=== PATIENT | female | born 1960 | race Caucasian/White ===

== ENCOUNTER → 2016-12-19 | Outpatient (CLI) | payer BC, OTHER ==
[~2016-12-19] VITALS: Ht 157.5 cm; Wt 86.6 kg
[~2016-12-19] MED LIST: CALCTAB29 PO; LIDOCAINE 2% INJ 100 MG/5 ML SDV (FOR ANES.) As Ordered ONE; MULT1TAB10 PO; NS 1,000 ML IV ONE; PROPOFOL 200 MG/20 ML VIAL As Ordered ONE; VITA100037 PO
--- NOTE | 2016-12-19 10:25 | ROOR ---
Patient Name: Gayle Vang Procedure Date: 12/19/2016 10:04 AM Date of : 1960 Age: 56 Room: [facility] Gender: Female Note Status: Finalized Procedure: Colonoscopy Indications: Screening for colorectal malignant neoplasm Providers: Benjie GRIFFIN MD Referring MD: Hilario Garland MD Requesting Provider: Medicines: Monitored Anesthesia Care Complications: No immediate complications. Procedure: Pre-Anesthesia Assessment: - The heart rate, respiratory rate, oxygen saturations, blood pressure, adequacy of pulmonary ventilation, and response to care were monitored throughout the procedure. The Colonoscope was introduced through the anus and advanced to the cecum, identified by appendiceal orifice and ileocecal valve. The colonoscopy was performed without difficulty. The patient tolerated the procedure well. The quality of the bowel preparation was good. Findings: The perianal and digital rectal examinations were normal. Small Internal Hemorrhoids. The entire examined colon appeared normal on direct and retroflexion views. Impression: - Small Internal Hemorrhoids. - The entire examined colon is normal on direct and retroflexion views. - No specimens collected. Recommendation: - Repeat colonoscopy in 10 years for screening purposes. Benjie Griffin MD Benjie GRIFFIN MD 12/19/2016 10:24:48 AM This report has been signed electronically. Number of Addenda: 0 Note Initiated On: 12/19/2016 10:04 AM Estimated Blood Loss: Estimated blood loss: none.
[2016-12-19 10:45] VITALS: BP 112/65
== END | disposition home or self-care (01) ==
LOC: M OPP 08:52
PROVIDERS: ATTEND Internal Medicine Gastroenterology
DX: Z12.11 Encounter for screening for malignant neoplasm of colon (principal); K64.8 Other hemorrhoids; G43.909 Migraine, unspecified, not intractable, without status migrainosus; Z80.3 Family history of malignant neoplasm of breast; Z98.84 Bariatric surgery status; Z88.8 Allergy status to other drugs, medicaments and biological substances; Z91.041 Radiographic dye allergy status; Z91.048 Other nonmedicinal substance allergy status; Z79.899 Other long term (current) drug therapy

== ENCOUNTER 2017-03-01 16:45 | Emergency (ER) | payer BC, OTHER ==
[~2017-03-01] VITALS: Ht 157.5 cm; Wt 90.0 kg
[2017-03-01 16:45] VITALS: BP 142/77
[~2017-03-01 16:45] MED LIST changes: -LIDOCAINE 2% INJ 100 MG/5 ML SDV (FOR ANES.) As Ordered ONE; -NS 1,000 ML IV ONE; -PROPOFOL 200 MG/20 ML VIAL As Ordered ONE; -VITA100037 PO; +VITA100067 PO
[2017-03-01] MEDS ORDERED: ADACEL/BOOSTRIX VACCINE (DIPHTH/PERTUSS/ACELL/TETANUS)0.5ML SYR (90715) IM ONE (17:15)
[2017-03-01] MEDS ORDERED: PERCOCET 5MG/325MG TAB PO ONE (17:30)
[2017-03-01] MEDS ORDERED: PERC5TAB12 PO (18:05)
[2017-03-01] MEDS ORDERED: KEFL500C17 PO (18:05)
--- NOTE | 2017-03-01 18:07 | REP ---
LEFT 1ST TOE: Five views of the left first toe are performed. I see no definite acute fracture. There is no dislocation. There is mild narrowing at the interphalangeal joint. IMPRESSION: No definite acute fracture. Signed by Marshal Toledo MD 03/01/2017 07:15 P
== END 2017-03-01 18:10 | disposition home or self-care (01) ==
LOC: M ED 16:45
DX: S91.202A Unspecified open wound of left great toe with damage to nail, initial encounter (principal); W22.8XXA Striking against or struck by other objects, initial encounter; Y92.099 Unspecified place in other non-institutional residence as the place of occurrence of the external cause; Y93.01 Activity, walking, marching and hiking; Y99.9 Unspecified external cause status

== ENCOUNTER 2017-07-20 09:23 | Emergency (ER) | payer BC, OTHER ==
[~2017-07-20] VITALS: Ht 157.5 cm; Wt 94.1 kg
[~2017-07-20 09:23] MED LIST changes: +KEFL500C17 PO; +PERC5TAB12 PO
[2017-07-20 09:25] VITALS: BP 138/79
[2017-07-20] MEDS ORDERED: GABA-279 (09:39)
[2017-07-20] MEDS ORDERED: SUMA100T2 (09:39)
[2017-07-20] MEDS ORDERED: CALCTAB9 (09:39)
[2017-07-20 10:32] LABS: BASO # 0.1 10^3/uL (0.0-0.2); BASO % 0.7 % (0.0-1.0); EOS # 0.2 10^3/uL (0.0-0.50); EOS % 2.7 % (0.0-3.0); IMMATURE GRANULOCYTE % 0.2 % (0-0); LYMPH # 2.7 10^3/uL (1.5-4.5); LYMPH % 32.1 % (24.0-44.0); MEAN CORPUSCULAR HEMOGLOBIN 28.7 pg (27.0-33.0); MEAN CORPUSCULAR VOLUME 86.8 fl (80.0-96.0); MONO # 0.4 10^3/uL (0.0-0.8); MONO % 5.2 % (0.0-5.0); NEUTROPHILS # 4.9 10^3/uL (1.8-7.7); NEUTROPHILS % 59.1 % (36.0-66.0); PLATELET COUNT, AUTOMATED 350 10^3/uL (150-450); WHITE BLOOD COUNT 8.3 10^3/uL (4.0-10.0)
[2017-07-20] MEDS ORDERED: TETRACAINE 0.5% OPHTH SOLN 4ML OD ONE (10:45)
[2017-07-20] MEDS ORDERED: FLUORESCEIN OPHTH 1 MG STRIP OD ONE (11:00)
== END 2017-07-20 11:21 | disposition home or self-care (01) ==
LOC: M ED 09:23
DX: H01.001 Unspecified blepharitis right upper eyelid (principal); H01.002 Unspecified blepharitis right lower eyelid; G43.909 Migraine, unspecified, not intractable, without status migrainosus; K21.9 Gastro-esophageal reflux disease without esophagitis; G25.81 Restless legs syndrome; D69.6 Thrombocytopenia, unspecified; Z88.0 Allergy status to penicillin; Z88.8 Allergy status to other drugs, medicaments and biological substances; Z91.041 Radiographic dye allergy status; L23.1 Allergic contact dermatitis due to adhesives; Z87.891 Personal history of nicotine dependence

== ENCOUNTER → 2017-09-09 | Outpatient (REF) | payer OTHER ==
[2017-09-09 21:54] LABS: APPEARANCE, URINE CLOUDY (CLEAR); BACTERIA, URINE AUTO 3+ (NEGATIVE); BILIRUBIN, URINE AUTO NEGATIVE (NEGATIVE); BLOOD, URINE BLOOD 1+ (NEGATIVE); CALCIUM OXALATE CRYSTALS SMALL; COLOR, URINE YELLOW (YELLOW); GLUCOSE, URINE (UA) AUTO NEGATIVE (NEGATIVE); KETONE, URINE AUTO NEGATIVE (NEGATIVE); LEUKOCYTE ESTERASE, URINE AUTO 1+ (NEGATIVE); MUCUS, URINE SMALL (NEGATIVE); NITRITE, URINE AUTO POSITIVE (NEGATIVE); PROTEIN, URINE AUTO NEGATIVE (NEGATIVE); RBC, URINE AUTO 2 /HPF (0-3); SPECIFIC GRAVITY URINE AUTO 1.019 (1.002-1.035); SQUAMOUS EPITHELIAL CELL UR AU 4 /HPF (0-6); UROBILINOGEN, URINE AUTO 0.2 mg/dL (0.0-2.0); WBC, URINE AUTO 19 /HPF (0-3)
== END ==
LOC: M LAB REF 08:39
DX: N39.0 Urinary tract infection, site not specified (principal)

== ENCOUNTER 2018-12-07 13:15 | Emergency (ER) | payer BC, OTHER ==
[~2018-12-07] VITALS: Ht 157.5 cm; Wt 101.5 kg
[~2018-12-07 13:15] MED LIST changes: +CALCTAB9; +GABA-1171; +SUMA100T2
[2018-12-07 14:53] VITALS: BP 141/84
[2018-12-07] MEDS ORDERED: PRED10TA2 PO (14:54)
[2018-12-07] MEDS ORDERED: AUGM875T28 PO (14:54)
--- NOTE | 2018-12-08 07:04 | REP ---
CT BRAIN WITHOUT IV CONTRAST: CT brain performed without IV contrast. Ventricles are normal in size and position. There is no midline shift or mass effect. Tol[place]-white differentiation is well maintained. There is no acute intracranial hemorrhage or extra-axial fluid collection. There is moderate opacification of the right frontal sinus and mild to moderate opacification of the left frontal sinus. There is moderate diffuse opacification of the left ethmoid sinuses. There is mild mucosal thickening in the left sphenoid and right sphenoid sinuses. There is mild mucosal thickening in the left maxillary sinus. Mastoid air cells are clear. IMPRESSION: Scattered sinusitis, with scattered mild mucosal thickening which appears chronic, but there may be superimposed acute frontal and left ethmoid sinusitis. Otherwise negative noncontrast CT brain. Electronically Signed by Marshal Toledo MD 12/08/2018 11:27 A
== END 2018-12-07 15:04 | disposition home or self-care (01) ==
LOC: M ED 13:15
DX: T78.40XA Allergy, unspecified, initial encounter (principal); Y92.9 Unspecified place or not applicable; Y93.9 Activity, unspecified; J01.80 Other acute sinusitis; E11.9 Type 2 diabetes mellitus without complications; G43.909 Migraine, unspecified, not intractable, without status migrainosus; Z79.899 Other long term (current) drug therapy; Z91.041 Radiographic dye allergy status; Z91.89 Other specified personal risk factors, not elsewhere classified; Z88.0 Allergy status to penicillin; Z88.1 Allergy status to other antibiotic agents; Z88.8 Allergy status to other drugs, medicaments and biological substances

== ENCOUNTER → 2019-03-12 | Outpatient (CLI) | payer BC, OTHER ==
[~2019-03-12] MED LIST changes: +AUGM875T28 PO; +D3 H10002 PO; +MULTTAB13 PO; +PRED10TA2 PO; +SILV1CRE60 TOP; +ZYRTTAB8 PO
--- NOTE | 2019-03-13 08:40 | ECGEPIP ---
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
== END ==
LOC: M EKG 12:22
PROVIDERS: ATTEND Anesthesiology
DX: Z01.818 Encounter for other preprocedural examination (principal); R00.1 Bradycardia, unspecified; I45.10 Unspecified right bundle-branch block

== ENCOUNTER 2019-03-13 11:08 | Day surgery (SDC) | payer BC, OTHER ==
[~2019-03-13] VITALS: Ht 157.5 cm; Wt 95.3 kg
[~2019-03-13 11:08] MED LIST changes: +EPINEPHrine 1MG/ML INJ 30ML MD-VIAL As Ordered ONE; +LIDOCAINE 1% MDV 20ML VIAL SQ PRN; +LR 1,000 ML IV ONE
[2019-03-13] MEDS ORDERED: LIDOCAINE 2% INJ 100 MG/5 ML SDV (FOR ANES.) As Ordered ONE (12:33)
[2019-03-13] MEDS ORDERED: PROPOFOL 200 MG/20 ML VIAL As Ordered ONE (12:33)
[2019-03-13] MEDS ORDERED: ROCURONIUM BROMIDE 50 MG/5 ML VIAL As Ordered ONE (12:33)
[2019-03-13] MEDS ORDERED: dexameTHASONE 4 MG/ML 1ML VIAL (J1100) As Ordered ONE (12:35)
[2019-03-13] MEDS ORDERED: ONDANSETRON 4MG/2ML VIAL (J2405) As Ordered ONE ×2 (12:35→13:20)
[2019-03-13] MEDS ORDERED: fentaNYL 250 MCG/5 ML INJECTION (J3010) As Ordered ONE (12:36)
[2019-03-13] MEDS ORDERED: REMIFENTANIL 1MG 3ML VIAL As Ordered ONE (12:36)
[2019-03-13] MEDS ORDERED: MIDAZOLAM INJ 2 MG/2 ML VIAL (J2250) As Ordered ONE ×2 (12:36→15:23)
[2019-03-13] MEDS ORDERED: EPINEPHrine 1MG/ML INJ 30ML MD-VIAL As Ordered ONE ×2 (12:45→14:07)
[2019-03-13] MEDS ORDERED: SCOPOLAMINE 1MG TRANSDERMAL PATCH As Ordered ONE (12:46)
[2019-03-13] MEDS ORDERED: ACETAMINOPHEN 1000MG 100ML IV BTL (OFIRMEV) (J0131 PER 10MG) As Ordered ONE (13:11)
[2019-03-13] MEDS ORDERED: SCOPOLAMINE 1MG TRANSDERMAL PATCH TOP ONE (13:15)
[2019-03-13] MEDS ORDERED: GLYCOPYRROLATE INJ 0.2 MG/ML 2 ML VIAL As Ordered ONE (13:27)
[2019-03-13] MEDS ORDERED: SUGAMMADEX SODIUM 500 MG/5 ML VIAL (BRIDION) As Ordered ONE (13:33)
[2019-03-13] MEDS ORDERED: METHYLENE BLUE 0.5% (5MG/ML) 10 ML AMP (PROVAYBLUE)(Q9968 PER 1MG) As Ordered ONE (14:06)
[2019-03-13] MEDS ORDERED: OXYMETAZOLINE NASAL SPRAY (AFRIN) As Ordered ONE (14:06)
[2019-03-13] MEDS ORDERED: LIDOCAINE W/EPINEPHRINE 1% 20ML VIAL As Ordered ONE (14:06)
[2019-03-13] MEDS ORDERED: oxyCODONE 5MG TAB As Ordered ONE (14:57)
[2019-03-13] MEDS ORDERED: fentaNYL 100 MCG/2 ML INJECTION (J3010) As Ordered ONE (14:57)
[2019-03-13] MEDS: fentaNYL 100 MCG/2 ML INJECTION (J3010) IV PRN ×4 (14:59→15:35)
[2019-03-13] MEDS: oxyCODONE 5MG TAB PO PRN ×2 (15:00→16:23)
[2019-03-13] MEDS: MIDAZOLAM INJ 2 MG/2 ML VIAL (J2250) IV PRN ×2 (15:26→15:40)
[2019-03-13] MEDS ORDERED: ONDANSETRON 4MG/2ML VIAL (J2405) IV PRN (15:30)
[2019-03-13] MEDS ORDERED: PERCOCET 5MG/325MG TAB PO PRN (15:30)
[2019-03-13] MEDS ORDERED: LR 1,000 ML IV SCH (15:30)
[2019-03-13] MEDS ORDERED: IBUPROFEN 800 MG TAB PO PRN (15:30)
[2019-03-13] MEDS ORDERED: SUMAtriptan SUCCINATE 25 MG TAB PO ONE (16:00)
[2019-03-13] MEDS ORDERED: MORPHINE 10 MG/ML 1ML VIAL (J2270) As Ordered ONE (16:30)
[2019-03-13] MEDS: MORPHINE 10 MG/ML 1ML VIAL (J2270) IV PRN ×3 (16:33→16:55)
[2019-03-13 18:20] VITALS: BP 148/73
--- NOTE | 2019-03-15 10:00 | RO ---
DATE OF PROCEDURE: 03/13/2019 PREPROCEDURE DIAGNOSES: 1. Chronic sinusitis. 2. Deviated septum. POSTPROCEDURE DIAGNOSES: 1. Chronic sinusitis. 2. Deviated septum. PROCEDURE: Septoplasty, bilateral endoscopic ethmoidectomy, maxillary antrostomy. SURGEON: Dr. Bronson Ellsworth. DIRECTORY OPERATOR: ANESTHESIA: General endotracheal. INDICATION: This is a 58-year-old with a history of chronic nasal obstruction and chronic sinusitis. DESCRIPTION OF PROCEDURE: Satisfactory general endotracheal was administered. Pharyngeal pack placed through the nose. Nose prepared for surgery. I placed some cotton-soaked pledgets with Afrin solution to the nasal cavity bilaterally. 1% Xylocaine with 1:100,000 epinephrine was injected in nasal septum. A [place] incision was made on the left side of the nose. A mucoperichondrial flap and envelope was created on the left side of the nasal septum and carried down to the junction of the bony and cartilaginous septum. This was then with an elevator, and an envelope was then created on the right side of the septum. A Kristal scissors was used to make a cut high in the perpendicular plate in the midportion of the vomer, and a central segment of the bony septum was resected. Next, with the round knife on the [place] elevator, a strip of cartilage was resected from the floor of the nose, mobilizing the quadrilateral cartilage and creating a swinging door. Then, a central segment of cartilaginous septum was resected, preserving a 1 cm dorsal and caudal strut. Double-action rongeur was used to take down deflected portions of the perpendicular plate, as well. Finally, the maxillary crest spur was taken down after elevating mucoperiosteum off both sides of it with a chisel. A segment of the resected cartilage was morselized and placed back into the septal envelope. The incision was closed using an interrupted #5-0 chromic suture. Then, a #4-0 plain suture was placed in a owvv-hod-rivin fashion through the two leaves of mucoperichondrium to appose them. At the conclusion of the septal surgery, endoscopic surgery started with a 0 degree telescope on the left side first. The uncinate process was taken down first with the microdebrider and then the lateral lamella of the pneumatized middle turbinates also resected which gave excellent exposure of the middle meatus. The ethmoid bulla was resected and perforated and then the grand lamella was identified and perforated medial inferior quadrant and resected. Working anteriorly, the lamella bone removed clearing the anterior ethmoid cells up to the nasal frontal recess. The actual maxilla sinus ostia was identified. It was enlarged using a combination of side-biting and up-biting forceps. Adrenaline pledgets were placed in this side of the nose with no significant bleeding in this dissection. On the right side, a similar dissection was performed including partial resection of the kandi bullosa by removing the lateral lamella. Large antrostomy was created as well as complete removal of the anterior ethmoid labyrinth. Once this was completed, adrenaline pledgets were placed in this side of the nose. Five minutes of waiting then these were removed. There was no significant bleeding. Sinu-Foam was placed into each side of the nose. The pharyngeal pack was removed, throat suctioned. Patient was awakened, extubated and sent to the recovery room in satisfactory condition. She will be seen back in the office in 3 days.
== END 2019-03-13 18:50 | disposition home or self-care (01) ==
LOC: M SDC 11:08
PROVIDERS: ATTEND Specialist
DX: J32.9 Chronic sinusitis, unspecified (principal); J34.2 Deviated nasal septum; D64.9 Anemia, unspecified; R51 Headache; Z98.84 Bariatric surgery status; Z91.041 Radiographic dye allergy status; Z79.899 Other long term (current) drug therapy; Z87.891 Personal history of nicotine dependence
CPT/HCPCS: 30520; 31255; 31267; 88300; 88305; J0131; J1100; J2250; J2270; J2405; J3010; Q9968

== ENCOUNTER → 2019-08-28 | Outpatient (CLI) | payer BC, OTHER ==
[~2019-08-28] MED LIST changes: -EPINEPHrine 1MG/ML INJ 30ML MD-VIAL As Ordered ONE; -LIDOCAINE 1% MDV 20ML VIAL SQ PRN; -LR 1,000 ML IV ONE
--- NOTE | 2019-08-28 19:41 | REP ---
Maxillofacial CT study without contrast: History: Chronic pansinusitis. Comparison is made with the head CT images from December 07, 2018. Findings: There is complete opacification of the lateral of the two frontal sinus air cells on the right, unchanged from the comparison CT study. There is moderate mucosal thickening and fairly extensive opacification of the ethmoid air cells bilaterally. This is more prominent than on the prior CT. Mild to moderate mucosal thickening is seen in the sphenoid sinus bilaterally. This is more advanced than previously as well. There is moderate to advanced paranasal sinus mucosal thickening affecting the maxillary sinuses. The patient is status post nasoantral window on the right which is widely patent. On the left, it appears to have been done as well although it is narrowed by mucosal thickening. The ostiomeatal complexes are bilaterally obscured. There appears to have been partial ethmoid bullectomy on the right. Nasal turbinate soft tissues are unremarkable. Bony nasal septum is midline. No nasal polyp is seen. A small torus palatine is noted. Mastoid aeration is normal and symmetric. No skull base lesion is seen. The visualized intracranial and intraorbital soft tissues are unremarkable. Impression: Polysinusitis changes. Postoperative changes in the maxillary sinuses bilaterally. Electronically Signed by Everett Skelton MD 08/28/2019 07:44 P
== END ==
LOC: M RAD 17:52
PROVIDERS: ATTEND Specialist
DX: J32.4 Chronic pansinusitis (principal)

== ENCOUNTER 2019-09-15 11:00 | Day surgery (SDC) | payer BC, OTHER ==
[~2019-09-15] VITALS: Ht 157.5 cm; Wt 90.9 kg
[~2019-09-15 11:00] MED LIST changes: +D 202000 PO; +LIDOCAINE 1% MDV 20ML VIAL SQ PRN; +VITA50005 PO
[2019-09-15] MEDS ORDERED: propofoL 200 MG/20 ML VIAL As Ordered ONE (11:31)
[2019-09-15] MEDS ORDERED: ROCURONIUM BROMIDE 50 MG/5 ML VIAL As Ordered ONE (11:31)
[2019-09-15] MEDS ORDERED: LIDOCAINE 2% INJ 100 MG/5 ML SDV (FOR ANES.) As Ordered ONE (11:31)
[2019-09-15] MEDS ORDERED: MIDAZOLAM INJ 2 MG/2 ML VIAL (J2250) As Ordered ONE (11:32)
[2019-09-15] MEDS ORDERED: fentaNYL 250 MCG/5 ML INJECTION (J3010) As Ordered ONE (11:32)
[2019-09-15] MEDS ORDERED: LR 1,000 ML IV ONE (13:00)
[2019-09-15] MEDS ORDERED: SCOPOLAMINE 1MG TRANSDERMAL PATCH TOP ONE ×2 (13:00→13:15)
[2019-09-15] MEDS ORDERED: LIDOCAINE W/EPINEPHRINE 1% 20ML VIAL As Ordered ONE (13:07)
[2019-09-15] MEDS ORDERED: OXYMETAZOLINE NASAL SPRAY (AFRIN) As Ordered ONE (13:07)
[2019-09-15] MEDS ORDERED: EPINEPHrine INJ 1 MG/ML 1ML VIAL As Ordered ONE ×2 (13:07→14:53)
[2019-09-15] MEDS ORDERED: METHYLENE BLUE 0.5% (5MG/ML) 10 ML AMP (PROVAYBLUE)(Q9968 PER 1MG) As Ordered ONE (13:08)
[2019-09-15] MEDS ORDERED: SUGAMMADEX SODIUM 500 MG/5 ML VIAL (BRIDION) As Ordered ONE (14:34)
[2019-09-15] MEDS ORDERED: KETOROLAC 60 MG/2 ML VIAL (J1885) As Ordered ONE (14:35)
[2019-09-15] MEDS ORDERED: METOCLOPRAMIDE INJ 10MG/2ML VIAL (J2765) As Ordered ONE (14:35)
[2019-09-15] MEDS ORDERED: dexameTHASONE 4 MG/ML 1ML VIAL (J1100) As Ordered ONE (14:35)
[2019-09-15] MEDS ORDERED: ONDANSETRON 4MG/2ML VIAL (J2405) As Ordered ONE (14:35)
[2019-09-15] MEDS ORDERED: ACETAMINOPHEN 1000MG 100ML IV BTL (OFIRMEV) (J0131 PER 10MG) As Ordered ONE (14:38)
[2019-09-15] MEDS ORDERED: fentaNYL 100 MCG/2 ML INJECTION (J3010) As Ordered ONE (15:39)
[2019-09-15] MEDS: fentaNYL 100 MCG/2 ML INJECTION (J3010) IV PRN ×4 (15:45→16:00)
[2019-09-15] MEDS ORDERED: ONDANSETRON 4MG/2ML VIAL (J2405) IV PRN (16:00)
[2019-09-15] MEDS ORDERED: IBUPROFEN 800 MG TAB PO PRN (16:00)
[2019-09-15] MEDS ORDERED: LR 1,000 ML IV SCH (16:00)
[2019-09-15] MEDS: PERCOCET 5MG/325MG TAB PO PRN ×4 (16:00→16:35)
[2019-09-15] MEDS ORDERED: MORPHINE 10 MG/ML 1ML VIAL (J2270) As Ordered ONE (16:16)
[2019-09-15] MEDS: MORPHINE 2 MG/ML 1ML VIAL (J2270) IV PRN ×4 (16:20→16:35)
[2019-09-15 18:10] VITALS: BP 144/66
--- NOTE | 2019-10-10 00:35 | RO ---
DATE OF PROCEDURE: 09/15/2019 PREPROCEDURE DIAGNOSIS: Chronic ethmoid and maxillary sinusitis. POSTPROCEDURE DIAGNOSIS: Chronic ethmoid and maxillary sinusitis. PROCEDURE: Bilateral revision endoscopic ethmoidectomy, antrostomy. SURGEON: Bronson Ellsworth MD FOUNDRY PATTERNMAKER: ANESTHESIA: General endotracheal. INDICATIONS: This is a 59-year-old who underwent previous endoscopic surgery several months ago for recurring infections and nasal obstruction. After septoplasty and endoscopic surgery, she continued to have issues with persistence of low grade infection, crusting, and stagnation of mucus in the middle meatus. There appeared to be formation of adhesions from the middle turbinate to the uncinate process on both sides with narrowing of the osteomeatal complex. DESCRIPTION OF PROCEDURE: Satisfactory general endotracheal anesthesia was administered, pharyngeal pack placed, the nose prepared for surgery by placing cotton-soaked pledgets with Afrin solution to nasal cavity bilaterally. The surgeon began using a 0-degree telescope and microdebrider as a primary instrument. She has a narrow nose to begin with leading to significant crowding around the middle turbinate, anterior tip, and the uncinate process, so it was elected to first use the microdebrider to remove on the right side. Injection was done with 1% Xylocaine with 1:100,000 epinephrine. The adhesion was first taken down between the middle turbinate and lateral nasal wall with the microdebrider, and then the anterior one-third of the middle turbinate was resected with the microdebrider to relieve some of the crowding in this area. This allowed adequate access to the middle meatus. Residual anterior ethmoid cells were opened with the microdebrider. The natural maxillary sinus ostia was identified, and using the microdebrider, lamella bone in the region of the natural ostia was removed to enlarge it, and smaller adhesions had formed in this area, also taken down with the microdebrider. Adrenaline pledgets were placed inside the nose. An identical procedure was performed on the opposite side of the nose. At the completion of the procedure, no implants were used at this time, and Sinu-Foam was used to fill the middle meatus on both sides. Pharyngeal pack was removed, the throat was suctioned. The patient was then awakened, extubated, and sent to recovery in satisfactory condition.
== END 2019-09-15 18:23 | disposition home or self-care (01) ==
LOC: M SDC 11:00
PROVIDERS: ATTEND Specialist
DX: J01.21 Acute recurrent ethmoidal sinusitis (principal); J01.01 Acute recurrent maxillary sinusitis; E11.9 Type 2 diabetes mellitus without complications; G43.909 Migraine, unspecified, not intractable, without status migrainosus; Z98.84 Bariatric surgery status; Z87.891 Personal history of nicotine dependence; Z91.041 Radiographic dye allergy status; Z91.048 Other nonmedicinal substance allergy status; Z88.2 Allergy status to sulfonamides; Z88.8 Allergy status to other drugs, medicaments and biological substances; Z79.899 Other long term (current) drug therapy
CPT/HCPCS: 31254; 31256; 88305; J0131; J1100; J1885; J2250; J2270; J2405; J2765; J3010

== ENCOUNTER 2020-09-12 10:13 | Emergency (ER) | payer BC, OTHER ==
[~2020-09-12 10:13] MED LIST changes: -LIDOCAINE 1% MDV 20ML VIAL SQ PRN
[2020-09-12] MEDS ORDERED: OMEP-221 (10:33)
[2020-09-12] MEDS ORDERED: SUCR1ORA2 (10:33)
[2020-09-12] MEDS ORDERED: TOPI50TA9 (10:33)
[2020-09-12] MEDS ORDERED: NS 1,000 ML IV ONE (11:00)
[2020-09-12 11:18] LABS: APPEARANCE, URINE CLEAR (CLEAR); BACTERIA, URINE AUTO NEGATIVE (NEGATIVE); BILIRUBIN, URINE AUTO NEGATIVE (NEGATIVE); BLOOD, URINE BLOOD NEGATIVE (NEGATIVE); COLOR, URINE COLORLESS (YELLOW); GLUCOSE, URINE (UA) AUTO NEGATIVE (NEGATIVE); KETONE, URINE AUTO NEGATIVE (NEGATIVE); LEUKOCYTE ESTERASE, URINE AUTO NEGATIVE (NEGATIVE); NITRITE, URINE AUTO NEGATIVE (NEGATIVE); PROTEIN, URINE AUTO NEGATIVE (NEGATIVE); RBC, URINE AUTO 1 /HPF (0-3); SPECIFIC GRAVITY URINE AUTO 1.003 (1.002-1.035); SQUAMOUS EPITHELIAL CELL UR AU 0 /HPF (0-6); UROBILINOGEN, URINE AUTO 0.2 mg/dL (0.0-2.0); WBC, URINE AUTO 1 /HPF (0-3)
[2020-09-12 11:19] LABS: BASO # 0.1 10^3/uL (0.0-0.2); BASO % 0.7 % (0.0-1.0); EOS # 0.3 10^3/uL (0.0-0.5); EOS % 3.2 % (0.0-3.0); HEMATOCRIT 38.6 % (36.0-47.0); HEMOGLOBIN 11.8 g/dl (12.0-15.5); LYMPH # 2.4 10^3/uL (1.5-5.0); LYMPH % 29.2 % (24.0-44.0); MEAN CORPUSCULAR HEMOGLOBIN 26.3 pg (27.0-33.0); MEAN CORPUSCULAR HGB CONC 30.6 g/dl (32.0-36.5); MEAN CORPUSCULAR VOLUME 86.2 fl (80.0-96.0); MONO # 0.3 10^3/uL (0.0-0.8); MONO % 3.8 % (0.0-5.0); NEUTROPHILS # 5.2 10^3/uL (1.5-8.5); NEUTROPHILS % 62.6 % (36.0-66.0); PLATELET COUNT, AUTOMATED 331 10^3/uL (150-450); RED BLOOD COUNT 4.48 10^6/uL (4.00-5.40); WHITE BLOOD COUNT 8.4 10^3/uL (4.0-10.0)
--- NOTE | 2020-09-12 11:24 | REP ---
INDICATION: CHEST PAIN. COMPARISON: None. TECHNIQUE: SINGLE PORTABLE AP VIEW OF THE CHEST WAS PERFORMED. FINDINGS: THERE IS NO ACUTE INFILTRATE OR PULMONARY EDEMA. LUNGS ARE CLEAR. HEART IS NOT SIGNIFICANTLY ENLARGED. MEDIASTINAL SILHOUETTE IS UNREMARKABLE. THE VISUALIZED OSSEOUS STRUCTURES ARE INTACT. IMPRESSION: NO ACUTE PULMONARY DISEASE. <Electronically signed by Marshal Toleod > 09/12/20 [id number]
[2020-09-12 11:30] LABS: INR 0.98; PROTHROMBIN TIME 13.2 SECONDS (12.5-14.3)
[2020-09-12 11:31] LABS: PARTIAL THROMBOPLASTIN TIME 35.2 SECONDS (24.2-38.5)
[2020-09-12 11:47] LABS: ALBUMIN 3.8 GM/DL (3.2-5.2); ALT/SGPT 32 U/L (12-78); BILIRUBIN,DIRECT < 0.1 MG/DL (0.0-0.2); BILIRUBIN,TOTAL 0.2 MG/DL (0.2-1.0); BLOOD UREA NITROGEN 18 MG/DL (7-18); CALCIUM LEVEL 8.9 MG/DL (8.8-10.2); CARBON DIOXIDE LEVEL 28 MEQ/L (21-32); CHLORIDE LEVEL 109 MEQ/L (98-107); CK-MB VALUE MASS < 1.0 NG/ML (<3.6); CPK CREATINE PHOSPHOKINASE 76 U/L (26-192); CREATININE FOR GFR 1.13 MG/DL (0.55-1.30); FREE T4 0.88 NG/DL (0.76-1.46); GLOMERULAR FILTRATION RATE 52.1 (>45); GLUCOSE, FASTING 99 MG/DL (70-100); LIPASE 170 U/L (73-393); MB/CK RELATIVE INDEX 1.32 (< OR =4); NT-PRO BNP 153 PG/ML (<125); POTASSIUM SERUM 4.4 MEQ/L (3.5-5.1); SODIUM LEVEL 142 MEQ/L (136-145); TOTAL PROTEIN 7.5 GM/DL (6.4-8.2); TROPONIN I < 0.02 NG/ML (< 0.10)
--- NOTE | 2020-09-12 12:23 | REP ---
INDICATION: lightheaded. COMPARISON: 12/07/2018. TECHNIQUE: CT BRAIN PERFORMED IN THE AXIAL PLANE. CORONAL RECONSTRUCTION IMAGES ARE PERFORMED. FINDINGS: THE VENTRICLES ARE NORMAL IN SIZE AND POSITION. THERE IS NO MIDLINE SHIFT OR MASS EFFECT. TOL[place]O-WHITE DIFFERENTIATION IS WELL MAINTAINED. THERE IS NO ACUTE INTRACRANIAL HEMORRHAGE OR EXTRA-AXIAL FLUID COLLECTION. There are minor vascular calcifications in the carotid siphons. There is mild mucosal thickening in the anterior sphenoid sinuses. There is moderate diffuse opacification of the ethmoid sinuses. There is moderate opacification of the visualized left maxillary sinus. IMPRESSION: No acute intracranial hemorrhage, midline shift or mass effect. Sinusitis. <Electronically signed by Marshal Toledo > 09/12/20 [id number]
[2020-09-12] MEDS ORDERED: TOPIRAMATE (TopAMAX) 25 MG TAB PO ONE (13:00)
[2020-09-12] MEDS ORDERED: LISI10TA22 PO (14:23)
[2020-09-12] MEDS ORDERED: HM S0.65 NARES (14:24)
[2020-09-12 14:28] VITALS: BP 157/77
--- NOTE | 2020-09-12 17:07 | ECGEPIP ---
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
== END 2020-09-12 14:52 | disposition home or self-care (01) ==
LOC: EDSEX 10:13 → EDBD 10:13 → M ED 10:13
DX: R04.0 Epistaxis (principal); I10 Essential (primary) hypertension; R00.1 Bradycardia, unspecified; E66.9 Obesity, unspecified; E11.9 Type 2 diabetes mellitus without complications; G43.909 Migraine, unspecified, not intractable, without status migrainosus; K21.9 Gastro-esophageal reflux disease without esophagitis; K44.9 Diaphragmatic hernia without obstruction or gangrene; Z98.84 Bariatric surgery status; D69.6 Thrombocytopenia, unspecified; Z87.891 Personal history of nicotine dependence; Z79.899 Other long term (current) drug therapy; Z91.89 Other specified personal risk factors, not elsewhere classified; Z91.041 Radiographic dye allergy status; Z88.8 Allergy status to other drugs, medicaments and biological substances

== ENCOUNTER → 2020-11-27 | Outpatient (REF) | payer BC, OTHER ==
[~2020-11-27] MED LIST changes: +HM S0.65 NARES; +LISI10TA22 PO; +OMEP-221; +SUCR1ORA2; +TOPI50TA9
[2020-11-27 17:54] LABS: APPEARANCE, URINE CLEAR (CLEAR); BACTERIA, URINE AUTO 1+ (NEGATIVE); BILIRUBIN, URINE AUTO NEGATIVE (NEGATIVE); BLOOD, URINE BLOOD NEGATIVE (NEGATIVE); COLOR, URINE AMBER (YELLOW); GLUCOSE, URINE (UA) AUTO NEGATIVE (NEGATIVE); KETONE, URINE AUTO NEGATIVE (NEGATIVE); LEUKOCYTE ESTERASE, URINE AUTO 1+ (NEGATIVE); NITRITE, URINE AUTO NEGATIVE (NEGATIVE); PROTEIN, URINE AUTO NEGATIVE (NEGATIVE); RBC, URINE AUTO 1 /HPF (0-3); SQUAMOUS EPITHELIAL CELL UR AU 2 /HPF (0-6); WBC, URINE AUTO 13 /HPF (0-3)
== END ==
LOC: M LAB REF 17:29
PROVIDERS: ATTEND Physician Assistant
DX: N39.0 Urinary tract infection, site not specified (principal)

== ENCOUNTER 2021-06-23 10:00 | Outpatient (CLI) | payer BC, OTHER ==
[~2021-06-23] VITALS: Ht 157.5 cm; Wt 84.0 kg
[~2021-06-23 10:00] MED LIST changes: +ALBUTEROL 90 MCG/ACT 8GM HFA INHALER INH PRN; +ALBUTEROL SULFATE 2.5 MG/0.5 ML INH NEB SOLN INH PRN; +EPINEPHrine INJ 1 MG/ML 1ML AMP IM PRN; +ERGO500029 PO; +NS 1,000 ML IV SCH; -VITA50005 PO; +methylPREDNISolone 125MG 2ML VIAL IV PRN
[2021-06-23] MEDS ORDERED: CASIRIVIMAB (REGN10933) 600 MG, IMDEVIMAB (REGN10987) 600 MG in NS 250 ML IV ONE (10:30)
[2021-06-23 10:33] VITALS: BP 112/58
[2021-06-23 11:03] VITALS: BP 108/56
[2021-06-23 11:33] VITALS: BP 121/65
[2021-06-23 12:33] VITALS: BP 130/64
== END 2021-06-23 12:33 | disposition home or self-care (01) ==
LOC: M OPCLI4PR 10:00
PROVIDERS: ATTEND Family Medicine
DX: U07.1 COVID-19 (principal); Z88.8 Allergy status to other drugs, medicaments and biological substances; Z91.048 Other nonmedicinal substance allergy status

== ENCOUNTER → 2021-07-01 | Outpatient (REF) | payer OTHER ==
[~2021-07-01] MED LIST changes: -ALBUTEROL 90 MCG/ACT 8GM HFA INHALER INH PRN; -ALBUTEROL SULFATE 2.5 MG/0.5 ML INH NEB SOLN INH PRN; -EPINEPHrine INJ 1 MG/ML 1ML AMP IM PRN; -NS 1,000 ML IV SCH; -OMEP-221; +OMEP40CA5; -methylPREDNISolone 125MG 2ML VIAL IV PRN
[2021-07-01 12:37] LABS: APPEARANCE, URINE HAZY (CLEAR); BACTERIA, URINE AUTO 1+ (NEGATIVE); BILIRUBIN, URINE AUTO NEGATIVE (NEGATIVE); BLOOD, URINE BLOOD NEGATIVE (NEGATIVE); COLOR, URINE YELLOW (YELLOW); GLUCOSE, URINE (UA) AUTO NEGATIVE (NEGATIVE); KETONE, URINE AUTO NEGATIVE (NEGATIVE); LEUKOCYTE ESTERASE, URINE AUTO 3+ (NEGATIVE); NITRITE, URINE AUTO NEGATIVE (NEGATIVE); PROTEIN, URINE AUTO NEGATIVE (NEGATIVE); RBC, URINE AUTO 2 /HPF (0-3); SPECIFIC GRAVITY URINE AUTO 1.017 (1.002-1.035); SQUAMOUS EPITHELIAL CELL UR AU 6 /HPF (0-6); UROBILINOGEN, URINE AUTO 0.2 mg/dL (0.0-2.0); WBC, URINE AUTO 24 /HPF (0-3)
== END ==
LOC: M LAB REF 12:22
PROVIDERS: ATTEND Physician Assistant
DX: N39.0 Urinary tract infection, site not specified (principal)

== ENCOUNTER → 2022-01-24 | Outpatient (CLI) | payer BC, OTHER | LOC: M WHC 07:21 | PROVIDERS: ATTEND Family Medicine | DX: Z12.39 Encounter for other screening for malignant neoplasm of breast (principal); Z80.3 Family history of malignant neoplasm of breast ==

== ENCOUNTER → 2022-11-14 | Outpatient (CLI) | payer BC, OTHER ==
[~2022-11-14] MED LIST changes: +E-Z-GAS II EFFERVESCENT PACKET (SODIUM BICARB./CITRIC ACID/SIMETHICONE) As Ordered ONE; +E-Z-HD 98% w/w 340GM SUSP BTL As Ordered ONE; +E-Z-PAQUE 96% w/w SUSP 176GM BTL As Ordered ONE; +TOPI-254; -TOPI50TA9
== END ==
LOC: M RAD 10:04
PROVIDERS: ATTEND Physician Assistant
DX: R63.5 Abnormal weight gain (principal); Z98.84 Bariatric surgery status

== ENCOUNTER → 2022-11-16 | Outpatient (REF) | payer BC, OTHER ==
[~2022-11-16] MED LIST changes: -E-Z-GAS II EFFERVESCENT PACKET (SODIUM BICARB./CITRIC ACID/SIMETHICONE) As Ordered ONE; -E-Z-HD 98% w/w 340GM SUSP BTL As Ordered ONE; -E-Z-PAQUE 96% w/w SUSP 176GM BTL As Ordered ONE
[2022-11-16 13:29] LABS: APPEARANCE, URINE HAZY (CLEAR); BACTERIA, URINE AUTO NEGATIVE (NEGATIVE); BILIRUBIN, URINE AUTO NEGATIVE (NEGATIVE); BLOOD, URINE BLOOD NEGATIVE (NEGATIVE); COLOR, URINE YELLOW (YELLOW); GLUCOSE, URINE (UA) AUTO NEGATIVE (NEGATIVE); KETONE, URINE AUTO NEGATIVE (NEGATIVE); LEUKOCYTE ESTERASE, URINE AUTO 1+ (NEGATIVE); NITRITE, URINE AUTO NEGATIVE (NEGATIVE); PROTEIN, URINE AUTO NEGATIVE (NEGATIVE); RBC, URINE AUTO 1 /HPF (0-3); SPECIFIC GRAVITY URINE AUTO 1.014 (1.002-1.035); SQUAMOUS EPITHELIAL CELL UR AU 14 /HPF (0-6); UROBILINOGEN, URINE AUTO 0.2 mg/dL (0.0-2.0); WBC, URINE AUTO 5 /HPF (0-3)
== END ==
LOC: M LAB REF 12:14
PROVIDERS: ATTEND Physician Assistant
DX: N39.0 Urinary tract infection, site not specified (principal)

== ENCOUNTER → 2023-01-18 | Outpatient (CLI) | payer BC, OTHER | LOC: M WHC 10:00 | PROVIDERS: ATTEND Family Medicine | DX: N18.9 Chronic kidney disease, unspecified (principal) ==

== ENCOUNTER → 2023-05-15 | Outpatient (CLI) | payer BC, OTHER ==
[~2023-05-15] MED LIST changes: -HM S0.65 NARES; +SALI0.6531 NARES
== END ==
LOC: M WHC 09:44
PROVIDERS: ATTEND Specialist
DX: Z12.31 Encounter for screening mammogram for malignant neoplasm of breast (principal)

== ENCOUNTER → 2023-05-15 | Outpatient (REF) | payer OTHER | LOC: M PLALAB 10:56 | PROVIDERS: ATTEND Specialist | DX: Z12.4 Encounter for screening for malignant neoplasm of cervix (principal) | CPT/HCPCS: 87624; G0123 ==

== ENCOUNTER → 2023-06-15 | Outpatient (CLI) | payer BC, OTHER | LOC: M WHC 07:44 | PROVIDERS: ATTEND Physician Assistant | DX: M85.89 Other specified disorders of bone density and structure, multiple sites (principal) ==

== ENCOUNTER → 2023-07-10 | Outpatient (CLI) | payer BC, OTHER ==
[~2023-07-10] MED LIST changes: +TOPI-21; -TOPI-254
== END ==
LOC: M RAD 07:25
PROVIDERS: ATTEND Internal Medicine Cardiovascular Disease
DX: I11.9 Hypertensive heart disease without heart failure (principal)

== ENCOUNTER → 2023-12-13 | Outpatient (REF) | payer BC, OTHER ==
[2023-12-13 15:23] LABS: APPEARANCE, URINE MANUAL CLOUDY (CLEAR)
[2023-12-13 15:24] LABS: COLOR, URINE MANUAL ORANGE (YELLOW); PH,URINE MAN 5.5 UNITS (5.0 - 7.0); PROTEIN, URINE MANUAL OBSCURED mg/dL (NEGATIVE); SPECIFIC GRAVITY,URINE MANUAL 1.015 (1.002-1.035)
[2023-12-13 15:25] LABS: BILIRUBIN, URINE MANUAL OBSCURED (NEGATIVE); BLOOD URINE MANUAL OBSCURED (NEGATIVE); GLUCOSE, URINE (UA) MANUAL NEGATIVE (NEGATIVE); KETONE, URINE MANUAL OBSCURED mg/dL (NEGATIVE); LEUKOCYTE ESTERASE, URINE MAN POSITIVE (NEGATIVE); NITRITE, URINE MANUAL OBSCURED (NEGATIVE); UROBILINOGEN, URINE MANUAL OBSCURED mg/dl (NORMAL)
[2023-12-13 15:26] LABS: BACTERIA, URINE MOD AMOUNT; HYALINE CAST, URINE NONE SEEN /lpf (0-1); RBC, URINE 0-1 /hpf (0-3); SQUAMOUS EPITHELIAL CELL URINE MOD AMOUNT /hpf (SMALL AMT); TRANSITIONAL EPI CELLS, URINE SMALL AMOUNT /hpf; WBC, URINE TNTC /hpf (0-3)
== END ==
LOC: M LAB REF 12:18
PROVIDERS: ATTEND Physician Assistant
DX: N39.0 Urinary tract infection, site not specified (principal)

== ENCOUNTER → 2024-04-28 | Outpatient (CLI) | payer BC | LOC: M WHC 08:58 | PROVIDERS: ATTEND Psychiatry & Neurology Neurology | DX: I65.23 Occlusion and stenosis of bilateral carotid arteries (principal); R42 Dizziness and giddiness ==

== ENCOUNTER → 2024-11-19 | Outpatient (CLI) | payer MEDICARE, BC ==
[2024-11-19 10:27] LABS: BASO # 0.1 10^3/uL (0.0-0.2); BASO % 0.8 % (0.0-1.0); EOS # 0.3 10^3/uL (0.0-0.5); EOS % 3.8 % (0.0-3.0); HEMATOCRIT 38.8 % (36.0-47.0); HEMOGLOBIN 12.6 g/dl (12.0-15.5); LYMPH # 2.9 10^3/uL (1.5-5.0); LYMPH % 43.5 % (24.0-44.0); MEAN CORPUSCULAR HEMOGLOBIN 29.9 pg (27.0-33.0); MEAN CORPUSCULAR HGB CONC 32.5 g/dl (32.0-36.5); MEAN CORPUSCULAR VOLUME 92.2 fl (80.0-96.0); MONO # 0.2 10^3/uL (0.0-0.8); NEUTROPHILS # 3.2 10^3/uL (1.5-8.5); NEUTROPHILS % 48.6 % (36.0-66.0); PLATELET COUNT, AUTOMATED 249 10^3/uL (150-450); RED BLOOD COUNT 4.21 10^6/uL (4.00-5.40); WHITE BLOOD COUNT 6.6 10^3/uL (4.0-10.0)
[2024-11-19 10:55] LABS: ALBUMIN 4.1 G/DL (3.2-5.2); BILIRUBIN,TOTAL 0.5 MG/DL (0.3-1.2); CALCIUM LEVEL 9.3 MG/DL (8.3-10.6); CREATININE FOR GFR 0.75 MG/DL (0.55-1.30); GLOMERULAR FILTRATION RATE 88.3 (>45); POTASSIUM SERUM 4.2 MMOL/L (3.5-5.1); TOTAL PROTEIN 7.3 G/DL (5.7-8.2)
== END ==
LOC: M RAD 09:18
PROVIDERS: ATTEND Family Medicine
DX: Z01.818 Encounter for other preprocedural examination (principal)

== ENCOUNTER → 2024-11-19 | Outpatient (CLI) | payer MEDICARE, BC ==
[~2024-11-19] MED LIST changes: +MULT-90 PO; +RIME75TA PO; +ROSU10TA61 PO; +TOPI25TA10 PO
[2024-11-19 10:59] LABS: ALBUMIN 4.1 G/DL (3.2-5.2); BILIRUBIN,TOTAL 0.5 MG/DL (0.3-1.2); CALCIUM LEVEL 8.9 MG/DL (8.3-10.6); CHOLESTEROL RISK RATIO 2.49 (<5); CREATININE FOR GFR 0.78 MG/DL (0.55-1.30); GLOMERULAR FILTRATION RATE 84.2 (>45); HDL CHOLESTEROL 54.1 MG/DL (>40); LDL CHOLESTEROL 59.5 MG/DL (<100); MAGNESIUM LEVEL 2.2 MG/DL (1.8-2.4); NON-HDL-C 80.9 MG/DL; POTASSIUM SERUM 4.2 MMOL/L (3.5-5.1); TOTAL PROTEIN 7.2 G/DL (5.7-8.2)
[2024-11-19 11:21] LABS: HEMOGLOBIN A1c 4.9 % (4.0-6.0)
[2024-11-20 07:32] LABS: LDL DIRECT 69 mg/dL (<100)
== END ==
LOC: M LAB 09:22
PROVIDERS: ATTEND Internal Medicine Cardiovascular Disease
DX: E78.2 Mixed hyperlipidemia (principal); E11.9 Type 2 diabetes mellitus without complications; I50.9 Heart failure, unspecified; R06.02 Shortness of breath; Z01.818 Encounter for other preprocedural examination

== ENCOUNTER 2024-12-02 10:01 | Observation (INO) | payer MEDICARE, BC ==
[~2024-12-02] VITALS: Ht 157.5 cm; Wt 69.9 kg
[2024-12-02] VITALS (8 sets, daily range): BP systolic 109–154; BP diastolic 69–94; TEMP 97.2–98.1; O2SAT 93–98
[~2024-12-02 10:01] MED LIST changes: +ACETAMINOPHEN 1000MG/100ML IV BAG As Ordered ONE; +LIDOCAINE 2% 100MG/5ML SDV (FOR ANES.) As Ordered ONE; +MIDAZOLAM INJ 2MG/2ML VIAL As Ordered ONE; +ONDANSETRON 4MG 2ML VIAL As Ordered ONE; +ROCURONIUM BROMIDE 50MG/5ML VIAL As Ordered ONE; -SUCR1ORA2; +SUCR1ORA20; +SUGAMMADEX SODIUM 500 MG/5 ML VIAL (BRIDION) As Ordered ONE; +TOPI-256 PO; -TOPI25TA10 PO; +dexmedeTOMIDine (4MCG/ML)200MCG/50ML BTL (PRECEDEX) As Ordered ONE; +fentaNYL 250 MCG/5 ML INJECTION As Ordered ONE; +propofoL 200 MG/20 ML VIAL As Ordered ONE
[2024-12-02] MEDS ORDERED: LIDOCAINE 1% SDV 5ML VIAL SC PRN (10:10)
[2024-12-02] MEDS ORDERED: LR 1,000 ML IV SCH (10:10)
[2024-12-02] MEDS ORDERED: HOME MED LIST COMPLETE! XX SCH (10:35)
[2024-12-02] MEDS: SCOPOLAMINE 1MG TRANSDERMAL PATCH TOP ONE (12:10)
[2024-12-02] MEDS: HEPARIN SOD (PORCINE) 5000UNITS/ML 1ML VIAL/SYRINGE SQ ONE (13:00)
[2024-12-02] MEDS ORDERED: LACRILUBE (AKWA TEARS) OPHTH OINT 3.5GM As Ordered ONE (13:00)
[2024-12-02] MEDS: ceFAZolin SOD 2 GM IV ONCE IV ONE (13:05)
[2024-12-02] MEDS: GENTAMICIN SULF 80MG/2ML VIAL As Ordered ONE (13:30)
[2024-12-02] MEDS ORDERED: METOCLOPRAMIDE INJ 10MG/2ML VIAL As Ordered ONE (13:44)
[2024-12-02] MEDS ORDERED: ePHEDrine SULFATE 25 MG/5 ML(5MG/ML) SYRINGE As Ordered ONE (14:09)
[2024-12-02] MEDS ORDERED: HYDROmorphone HCL 2MG/ML 1ML VIAL As Ordered ONE (14:11)
[2024-12-02] MEDS: BUPivacaine LIPOSOME/PF 266MG 20ML VIAL (13.3MG/ML)(EXPAREL) As Ordered ONE (15:54)
[2024-12-02] MEDS ORDERED: METOCLOPRAMIDE INJ 10MG/2ML VIAL IV PRN (16:15)
[2024-12-02] MEDS ORDERED: HYDROMORPHONE HCL 0.5 MG/ 0.5 ML SYRINGE IV PRN (16:15)
[2024-12-02] MEDS ORDERED: oxyCODONE 5MG TAB PO PRN (16:15)
[2024-12-02] MEDS ORDERED: ONDANSETRON 4MG 2ML VIAL IV PRN (16:15)
[2024-12-02] MEDS ORDERED: fentaNYL 100 MCG/2 ML INJECTION IV PRN (16:15)
[2024-12-02] MEDS ORDERED: ACETAMINOPHEN 325 MG TAB PO PRN (16:20)
[2024-12-02] MEDS: LR 1,000 ML IV SCH ×2 (20:11→20:17)
[2024-12-02] MEDS: ceFAZolin SODIUM 2 GM in DEXTROSE 5% (D5W) ADV/MINI-BAG 50 ML IV SCH (20:16)
[2024-12-02] MEDS: TOPIRAMATE (TopAMAX) 25 MG TAB PO SCH (20:17)
[2024-12-02] MEDS: ONDANSETRON 4MG 2ML VIAL IV PRN (21:08)
[2024-12-02] MEDS: PERCOCET 5MG/325MG TAB PO PRN (21:49)
[2024-12-03] MEDS: traMADol 50 MG TAB PO PRN (02:05)
[2024-12-03 05:15] VITALS: BP 109/69; TEMP 97.5; O2SAT 91
[2024-12-03 08:00] VITALS: BP 110/68; TEMP 97.7; O2SAT 95
[2024-12-03] MEDS: ROSUVASTATIN 10 MG TAB (CRESTOR) PO SCH (08:57)
[2024-12-03] MEDS ORDERED: PERCOCET PO (10:24)
== END 2024-12-03 12:35 | disposition home or self-care (01) ==
LOC: M SDC 10:01 → M RR INP 10:02 → M MS5PR 17:20
PROVIDERS: ADMIT Plastic Surgery Surgery of the Hand; ATTEND Plastic Surgery Surgery of the Hand
DX: M54.08 Panniculitis affecting regions of neck and back, sacral and sacrococcygeal region (principal); Z98.84 Bariatric surgery status; Z91.041 Radiographic dye allergy status; Z88.8 Allergy status to other drugs, medicaments and biological substances
CPT/HCPCS: 15830; 15847; 88300; 96365; 96366; 96375; G0378; J0131; J0665; J0666; J0690; J1100; J1171; J1580; J2250; J2405; J2765; J3010

== ENCOUNTER → 2025-04-28 | Outpatient (CLI) | payer MEDICARE, BC ==
[~2025-04-28] MED LIST changes: -ACETAMINOPHEN 1000MG/100ML IV BAG As Ordered ONE; -LIDOCAINE 2% 100MG/5ML SDV (FOR ANES.) As Ordered ONE; -MIDAZOLAM INJ 2MG/2ML VIAL As Ordered ONE; -ONDANSETRON 4MG 2ML VIAL As Ordered ONE; +PERCOCET PO; -ROCURONIUM BROMIDE 50MG/5ML VIAL As Ordered ONE; -SUGAMMADEX SODIUM 500 MG/5 ML VIAL (BRIDION) As Ordered ONE; -dexmedeTOMIDine (4MCG/ML)200MCG/50ML BTL (PRECEDEX) As Ordered ONE; -fentaNYL 250 MCG/5 ML INJECTION As Ordered ONE; -propofoL 200 MG/20 ML VIAL As Ordered ONE
== END ==
LOC: M WHC 10:20
PROVIDERS: ATTEND Obstetrics & Gynecology
DX: Z53.9 Procedure and treatment not carried out, unspecified reason (principal)

== ENCOUNTER → 2025-05-04 | Outpatient (CLI) | payer MEDICARE, BC | LOC: M WHC 09:55 | PROVIDERS: ATTEND Obstetrics & Gynecology | DX: R10.2 Pelvic and perineal pain (principal) ==

== ENCOUNTER → 2025-06-24 | Outpatient (REF) | payer MEDICARE, BC ==
[~2025-06-24] MED LIST changes: -ROSU10TA61 PO; +ROSU10TA90 PO
[2025-06-24 19:27] LABS: APPEARANCE, URINE MANUAL CLOUDY (CLEAR); COLOR, URINE MANUAL RED (YELLOW); PH,URINE MAN OBSCURED UNITS (5.0 - 7.0); SPECIFIC GRAVITY,URINE MANUAL 1.016 (1.002-1.035)
[2025-06-24 19:28] LABS: BILIRUBIN, URINE MANUAL OBSCURED (NEGATIVE); BLOOD URINE MANUAL OBSCURED (NEGATIVE); GLUCOSE, URINE (UA) MANUAL OBSCURED mg/dL (NEGATIVE); KETONE, URINE MANUAL OBSCURED mg/dL (NEGATIVE); LEUKOCYTE ESTERASE, URINE MAN OBSCURED (NEGATIVE); NITRITE, URINE MANUAL OBSCURED (NEGATIVE); PROTEIN, URINE MANUAL OBSCURED mg/dL (NEGATIVE); UROBILINOGEN, URINE MANUAL OBSCURED mg/dl (NORMAL)
[2025-06-24 19:59] LABS: BACTERIA, URINE LARGE AMOUNT; MUCUS, URINE SMALL AMOUNT (NEGATIVE); SQUAMOUS EPITHELIAL CELL URINE MOD AMOUNT /hpf (SMALL AMT); TRANSITIONAL EPI CELLS, URINE SMALL AMOUNT /hpf; WBC, URINE 40-50 /hpf (0-3)
[2025-06-24 20:00] LABS: HYALINE CAST, URINE NONE SEEN /lpf (0-1)
== END ==
LOC: M LAB REF 18:26
PROVIDERS: ATTEND Physician Assistant
DX: N39.0 Urinary tract infection, site not specified (principal)